=== PATIENT | female | born 1965 | race Caucasian/White ===

== ENCOUNTER → 2024-12-17 | Outpatient (CLI) | payer BC ==
--- NOTE | 2024-12-17 15:10 | CT ---
EXAMINATION TYPE: CT abdomen pelvis w con CT DLP: 395.10 mGycm, Automated exposure control for dose reduction was used. DATE OF EXAM: 12/17/2024 2:43 PM COMPARISON: None CLINICAL INDICATION:Female, 59 years old with history of R31.9 HEMATURIA, UNSPECIFIED; HEMATURIA TECHNIQUE: Standard CT of the abdomen and pelvis following the administration of 100 cc of Isovue 3 00 IV contrast material and oral contrast. Coronal and sagittal reformats were performed. FINDINGS: Examination is limited due to paucity of intraabdominal fat. LOWER CHEST: No significant findings. ABDOMEN LIVER: Unremarkable GALLBLADDER AND BILE DUCTS: Unremarkable. PANCREAS: Unremarkable. SPLEEN: Unremarkable. ADRENAL GLANDS: Unremarkable. KIDNEYS AND URETERS: No evidence of hydronephrosis. The kidneys enhance symmetrically. No suspicious enhancing renal lesion. Subcentimeter right mid kidney cyst. No follow-up recommended. No right renal calculus. Nonobstructing left renal lower pole 3 mm calculus. No hydroureter or ureteral calculus id entified. Contrast is demonstrated within both collecting systems on the delayed phase. PELVIS BLADDER: No abnormality identified within the limitations of a nonintraluminal contrast appearance. REPRODUCTIVE: Unremarkable. ABDOMEN & PELVIS STOMACH AND BOWEL: Stomach and duodenum are unremarkable. Enteric contrast reaches the mid to distal small bowel. No focal bowel wall thickening or stranding inflammatory changes identified. The appendi x is within normal limits. No evidence of bowel obstruction. PERITONEUM: No evidence of pneumoperitoneum or free fluid. VASCULATURE: Minimal atherosclerotic calcifications are present throughout the abdominal aorta and it s branches. No evidence of aortic aneurysm. MUSCULOSKELETAL: No acute osseous abnormalities. Postsurgical changes with intramedullary adan involvi ng the visualized proximal right femur from prior healed fracture. Remote healed left inferior superi or pubic rami fractures with spurring. Mild right hip osteoarthritic change. Grade 1 anterolisthesis of L4 on L5 without evidence of pars defects. Bilateral facet arthropathy at this level. LYMPH NODES: No evidence for lymphadenopathy. SOFT TISSUE/ABDOMINAL WALL: Unremarkable IMPRESSION: 1. No CT evidence for acute abdominal/pelvic process. 2. No suspicious enhancing renal lesion. 3. Nonobstructing left renal lower pole calculus. [facility], , 12/17/2024 3:08 PM
== END | disposition home or self-care (01) ==
LOC: RADCTMAIN 12:38
PROVIDERS: ATTEND Family Medicine
DX: N20.0 Calculus of kidney (principal)
CPT/HCPCS: 74177; Q9967